=== PATIENT | male | born 1990 | race Caucasian/White ===

== ENCOUNTER 2016-07-04 17:13 | Emergency (ER) | payer OTHER | END 2016-07-04 17:50 | disposition home or self-care (01) | LOC: ER 17:13 | DX: R07.89 Other chest pain (principal); J45.909 Unspecified asthma, uncomplicated; R05 Cough; M54.9 Dorsalgia, unspecified | CPT/HCPCS: 71020; 99283-25 ==

== ENCOUNTER 2016-07-21 11:38 | Emergency (ER) | payer OTHER | END 2016-07-21 13:14 | disposition home or self-care (01) | LOC: ER 11:38 | DX: J10.1 Influenza due to other identified influenza virus with other respiratory manifestations (principal); F41.9 Anxiety disorder, unspecified | CPT/HCPCS: 87400; 99283 ==

== ENCOUNTER 2016-09-07 22:16 | Emergency (ER) | payer OTHER | END 2016-09-07 23:56 | disposition home or self-care (01) | LOC: ER 22:16 | DX: M54.2 Cervicalgia (principal); M54.12 Radiculopathy, cervical region; M62.838 Other muscle spasm; F17.210 Nicotine dependence, cigarettes, uncomplicated; Z79.899 Other long term (current) drug therapy | CPT/HCPCS: 72125; 96372; 99283-25 ==

== ENCOUNTER 2016-09-28 07:41 | Emergency (ER) | payer OTHER | END 2016-09-28 09:18 | disposition home or self-care (01) | LOC: ER 07:41 | DX: M54.6 Pain in thoracic spine (principal); R07.89 Other chest pain; X50.1XXA Overexertion from prolonged static or awkward postures, initial encounter; I10 Essential (primary) hypertension; F41.9 Anxiety disorder, unspecified; Z79.899 Other long term (current) drug therapy | CPT/HCPCS: 96372; 99282-25 ==

== ENCOUNTER 2016-11-03 18:35 | Emergency (ER) | payer OTHER | END 2016-11-03 21:15 | disposition home or self-care (01) | LOC: ER 18:35 | DX: S20.212A Contusion of left front wall of thorax, initial encounter (principal); S60.212A Contusion of left wrist, initial encounter; S50.02XA Contusion of left elbow, initial encounter; W10.9XXA Fall (on) (from) unspecified stairs and steps, initial encounter; Y92.009 Unspecified place in unspecified non-institutional (private) residence as the place of occurrence of the external cause; I10 Essential (primary) hypertension | CPT/HCPCS: 71250; 73080; 73090; 96372; 99283-25 ==